=== PATIENT | female | born 1960 | race Caucasian/White ===

== ENCOUNTER → 2020-01-11 10:48 | Outpatient (BNVA) | payer MEDICARE, SELFPAY | PROVIDERS: Visit Provider Internal Medicine | DX: F11.99 Opioid use, unspecified with unspecified opioid-induced disorder (principal) | CPT/HCPCS: 80305; 96372; 99212; Q9991 ==

== ENCOUNTER → 2020-02-08 10:50 | Outpatient (BNVA) | payer MEDICARE, SELFPAY | PROVIDERS: Visit Provider Internal Medicine | DX: F11.99 Opioid use, unspecified with unspecified opioid-induced disorder (principal) | CPT/HCPCS: Q3014 ==

== ENCOUNTER → 2020-02-22 13:44 | Outpatient (BNVA) | payer MEDICARE, SELFPAY | PROVIDERS: Visit Provider Internal Medicine | DX: Z76.89 Persons encountering health services in other specified circumstances (principal) | CPT/HCPCS: Q3014 ==

== ENCOUNTER → 2020-03-07 10:52 | Outpatient (BNVA) | payer MEDICARE, SELFPAY | PROVIDERS: Visit Provider Internal Medicine | DX: F11.99 Opioid use, unspecified with unspecified opioid-induced disorder (principal) | CPT/HCPCS: 80305; 96372; 99212; Q9991 ==

== ENCOUNTER → 2020-04-04 13:02 | Outpatient (BNVA) | payer MEDICARE, SELFPAY | PROVIDERS: Visit Provider Internal Medicine | DX: F11.99 Opioid use, unspecified with unspecified opioid-induced disorder (principal) | CPT/HCPCS: 80305; 96372; 99211; Q9991 ==